=== PATIENT | female | born 1940 | race Caucasian/White ===

== ENCOUNTER 2018-10-04 13:18 | Inpatient (IN) | payer MEDICARE, OTHER ==
[2018-10-04] MEDS ORDERED: GLUCAGON 1 MG INJ IM (14:30)
[2018-10-04] MEDS ORDERED: DEXTROSE 50% 50 ML SYRINGE IV ×2 (14:30)
[2018-10-04] MEDS ORDERED: GLUCOSE GEL 15 GRAM TUBE BUCCAL (14:30)
[2018-10-04] MEDS ORDERED: GLUCOSE GEL 15 GRAM TUBE PO ×2 (14:30)
[2018-10-04] MEDS: DEXTROSE 5%-0.45% NACL 1,000 ML IV (14:38)
[2018-10-04] MEDS: FAMOTIDINE 20 MG INJ IV (15:45)
[2018-10-04] MEDS: INSULIN ASPART [NOVOLOG] 3 ML PEN SC ×2 (16:59→21:41)
[2018-10-04] MEDS: ACETAMINOPHEN 1000MG/100ML IV 100 ML IVPB (22:35)
[2018-10-05] MEDS: INSULIN ASPART [NOVOLOG] 3 ML PEN SC ×6 (00:22→20:16)
[2018-10-05] MEDS: DEXTROSE 5%-0.45% NACL 1,000 ML IV ×2 (01:33→15:25)
[2018-10-05] MEDS: SOD CHLORIDE 0.9% 500 ML IV (03:56)
[2018-10-05 05:48] LABS: ABNORMAL IP MESSAGE 1; HEMATOCRIT 23.2 % (37.0-47.0); MEAN CORPUSCULAR HEMOGLOBIN 28.8 pg (29.0-33.0); MEAN CORPUSCULAR HGB CONC 29.7 g/dl (32.0-37.0); MEAN CORPUSCULAR VOLUME 96.7 fl (82.0-101.0); MEAN PLATELET VOLUME 12.9 fl (7.4-10.4); NUCLEATED RED BLOOD CELLS% 0.2 /100WBC (0.0-0.0); PLATELET COUNT 133 10^3/UL (140-415); RED CELL DISTRIBUTION WIDTH 14.7 % (11.5-14.5)
[2018-10-05 05:48] LABS: WHITE BLOOD COUNT 13.1 10^3/ul (4.8-10.8)
[2018-10-05 05:54] LABS: ADD MAN DIFF? YES; HEMOGLOBIN 6.9 g/dl (12.0-16.0); POSITIVE DIFF @See below
[2018-10-05 06:09] LABS: PARTIAL THROMBOPLASTIN TIME 52.4 Sec (23.0-35.0)
[2018-10-05] MEDS ORDERED: PHENYLephrine 20MG IN 250 ML 250 ML IV (06:30)
[2018-10-05 06:37] LABS: ANION GAP 14 (5-13); BLOOD UREA NITROGEN 111 mg/dl (7-20); CALCIUM 7.5 mg/dl (8.4-10.2); CARBON DIOXIDE 24 mmol/L (21-31); CHLORIDE 101 mmol/L (97-110); CREATININE 7.19 mg/dl (0.44-1.00); GLUCOSE 93 mg/dl (70-220); MAGNESIUM 3.5 mg/dl (1.7-2.5); PHOSPHORUS 6.9 mg/dl (2.5-4.9); POTASSIUM 4.3 mmol/L (3.5-5.1); SODIUM 139 mmol/L (135-144)
[2018-10-05 06:54] LABS: ANISOCYTOSIS 2+ (0-0); BAND NEUTROPHILS #M 0.6 10^3/ul (0.0-0.6); BAND NEUTROPHILS % (M) 5 % (0-4); LYMPHOCYTES #M 0.5 10^3/ul (0.8-2.9); LYMPHOCYTES % (M) 4 % (15-51); MICROCYTOSIS 1+ (0-0); MONOCYTES % (M) 8 % (0-11); PLATELET ESTIMATE DECREASED; POLYCHROMASIA 1+ (0-0); SEGMENTED NEUTROPHILS (M) % 83 % (39-77); SMUDGE%M 9 % (0-0)
[2018-10-05] MEDS: LIDOCAINE 1% (MPF) 5 ML VIAL SC (09:00)
[2018-10-05] MEDS: FAMOTIDINE 20 MG INJ IV (09:59)
[2018-10-05] MEDS: INSULIN GLARGINE [LANTus] (100 UNITS/ML) SYG SC (10:00)
[2018-10-05] MEDS: BUDESONIDE (NEB) 0.5MG/2ML AMP HHN ×2 (10:16→20:17)
[2018-10-05 13:34] LABS: HEPATITIS B SURFACE ANTIBODY NEGATIVE (NEGATIVE)
[2018-10-05 14:23] LABS: IMMEDIATE SPIN CROSSMATCH 1 1
[2018-10-05 14:36] LABS: HEPATITIS B SURFACE ANTIGEN NEGATIVE (NEGATIVE)
[2018-10-05 17:12] LABS: OCCULT BLOOD STOOL POSITIVE (NEGATIVE)
[2018-10-05] MEDS: ALBUTEROL/IPRATROPIUM (NEB) 3 ML AMP HHN ×2 (17:43→20:17)
[2018-10-05 19:08] LABS: CREATINE KINASE 297 IU/L (23-200)
[2018-10-05 19:21] LABS: CK INDEX 0.7; CK-MB 2.17 ng/ml (0.0-2.4); TROPONIN-I 0.104 ng/ml (0.000-0.120)
[2018-10-06] MEDS: INSULIN ASPART [NOVOLOG] 3 ML PEN SC ×6 (01:38→21:00)
[2018-10-06 01:54] LABS: CREATINE KINASE 216 IU/L (23-200)
[2018-10-06 02:05] LABS: CK INDEX 0.7
[2018-10-06 02:08] LABS: TROPONIN-I 0.121 ng/ml (0.000-0.120)
[2018-10-06] MEDS: DEXTROSE 5%-0.45% NACL 1,000 ML IV (05:10)
[2018-10-06 05:12] LABS: ADD MAN DIFF? NO
[2018-10-06 05:24] LABS: WHITE BLOOD COUNT 10.1 10^3/ul (4.8-10.8)
[2018-10-06 05:24] LABS: BASOPHILS % 0.1 % (0.0-2.0); EOSINOPHILS # 0.1 10^3/ul (0.0-0.5); EOSINOPHILS % 1.4 % (0.0-7.0); HEMATOCRIT 23.5 % (37.0-47.0); HEMOGLOBIN 7.5 g/dl (12.0-16.0); LYMPHOCYTES # 0.6 10^3/ul (0.8-2.9); MEAN CORPUSCULAR HEMOGLOBIN 29.9 pg (29.0-33.0); MEAN CORPUSCULAR HGB CONC 31.9 g/dl (32.0-37.0); MEAN CORPUSCULAR VOLUME 93.6 fl (82.0-101.0); MEAN PLATELET VOLUME 12.6 fl (7.4-10.4); MONOCYTE # 0.6 10^3/ul (0.3-0.9); MONOCYTES % 5.8 % (0.0-11.0); NEUTROPHIL # 8.7 10^3/ul (1.6-7.5); NEUTROPHILS % 86.1 % (39.0-77.0); NUCLEATED RED BLOOD CELLS% 0.2 /100WBC (0.0-0.0); PLATELET COUNT 117 10^3/UL (140-415); RED BLOOD COUNT 2.51 10^6/ul (4.20-5.40); RED CELL DISTRIBUTION WIDTH 15.2 % (11.5-14.5)
[2018-10-06 06:03] LABS: CK-MB 1.15 ng/ml (0.0-2.4); TROPONIN-I 0.115 ng/ml (0.000-0.120)
[2018-10-06 06:04] LABS: ANION GAP 14 (5-13); BLOOD UREA NITROGEN 118 mg/dl (7-20); CALCIUM 7.4 mg/dl (8.4-10.2); CARBON DIOXIDE 21 mmol/L (21-31); CHLORIDE 103 mmol/L (97-110); GLUCOSE 132 mg/dl (70-220); MAGNESIUM 3.6 mg/dl (1.7-2.5); POTASSIUM 4.4 mmol/L (3.5-5.1); SODIUM 138 mmol/L (135-144)
[2018-10-06 06:06] LABS: CK INDEX 0.6; CREATINE KINASE 184 IU/L (23-200)
[2018-10-06 08:22] LABS: IRON 18 ug/dl (35-150)
[2018-10-06 08:32] LABS: % IRON SATURATION 9 % SAT (22-52); TOTAL IRON BINDING CAPACITY 206 ug/dl (241-421)
[2018-10-06] MEDS: INSULIN GLARGINE [LANTus] (100 UNITS/ML) SYG SC (08:46)
[2018-10-06] MEDS: FAMOTIDINE 20 MG INJ IV (08:48)
[2018-10-06] MEDS: EPOETIN ALFA-EPBX (ESRD) 10,000 UNIT/ML VIAL SC (09:36)
[2018-10-06] MEDS: BUDESONIDE (NEB) 0.5MG/2ML AMP HHN ×2 (11:19→20:35)
[2018-10-06] MEDS: HEPARIN 1000 UNITS/ML 10 ML INJ CATHETER (22:49)
[2018-10-07] MEDS: INSULIN ASPART [NOVOLOG] 3 ML PEN SC ×6 (01:00→21:00)
[2018-10-07 05:19] LABS: ADD MAN DIFF? NO
[2018-10-07] MEDS: LEVOTHYROXINE 125 MCG TAB PO (05:21)
[2018-10-07 05:24] LABS: WHITE BLOOD COUNT 9.5 10^3/ul (4.8-10.8)
[2018-10-07 05:24] LABS: ABNORMAL IP MESSAGE 1; BASOPHILS % 0.1 % (0.0-2.0); EOSINOPHILS # 0.2 10^3/ul (0.0-0.5); EOSINOPHILS % 1.6 % (0.0-7.0); HEMATOCRIT 23.6 % (37.0-47.0); HEMOGLOBIN 7.3 g/dl (12.0-16.0); LYMPHOCYTES # 0.6 10^3/ul (0.8-2.9); MEAN CORPUSCULAR HEMOGLOBIN 29.2 pg (29.0-33.0); MEAN CORPUSCULAR HGB CONC 30.9 g/dl (32.0-37.0); MEAN CORPUSCULAR VOLUME 94.4 fl (82.0-101.0); MEAN PLATELET VOLUME 12.4 fl (7.4-10.4); MONOCYTE # 0.6 10^3/ul (0.3-0.9); MONOCYTES % 6.5 % (0.0-11.0); NEUTROPHIL # 8.1 10^3/ul (1.6-7.5); NEUTROPHILS % 85.2 % (39.0-77.0); PLATELET COUNT 123 10^3/UL (140-415); RED CELL DISTRIBUTION WIDTH 15.3 % (11.5-14.5)
[2018-10-07 05:56] LABS: ANION GAP 13 (5-13); BLOOD UREA NITROGEN 81 mg/dl (7-20); CALCIUM 7.9 mg/dl (8.4-10.2); CARBON DIOXIDE 24 mmol/L (21-31); CHLORIDE 103 mmol/L (97-110); GLUCOSE 86 mg/dl (70-220); MAGNESIUM 3.1 mg/dl (1.7-2.5); SODIUM 140 mmol/L (135-144)
[2018-10-07 05:57] LABS: PHOSPHORUS 6.2 mg/dl (2.5-4.9)
[2018-10-07 06:24] LABS: POSITIVE DIFF @See below
[2018-10-07 06:25] LABS: LYMPHOCYTES % 6.1 % (15.0-51.0)
[2018-10-07] MEDS: CALCITRIOL 1 MCG INJ IV (08:00)
[2018-10-07] MEDS: ONDANSETRON 4 MG INJ IV (08:49)
[2018-10-07] MEDS: INSULIN GLARGINE [LANTus] (100 UNITS/ML) SYG SC (09:12)
[2018-10-07] MEDS: BUDESONIDE (NEB) 0.5MG/2ML AMP HHN ×2 (09:13→20:32)
[2018-10-07] MEDS: FAMOTIDINE 20 MG INJ IV (09:35)
[2018-10-07] MEDS: SOD FERRIC GLUC COMPLX 125 MG in SOD CHLORIDE 0.9% 100 ML IVPB (13:00)
[2018-10-07] MEDS: ACETAMINOPHEN 650MG/20.3ML CUP PO (18:59)
[2018-10-07] MEDS: CALCITRIOL 0.25 MCG CAP PO (21:38)
[2018-10-08] MEDS: INSULIN ASPART [NOVOLOG] 3 ML PEN SC ×6 (01:00→21:00)
[2018-10-08] MEDS: ONDANSETRON 4 MG INJ IV (01:10)
[2018-10-08] MEDS: ACETAMINOPHEN 1000MG/100ML IV 100 ML IVPB (01:48)
[2018-10-08 02:12] LABS: ANION GAP 11 (5-13); BLOOD UREA NITROGEN 53 mg/dl (7-20); CARBON DIOXIDE 27 mmol/L (21-31); CHLORIDE 100 mmol/L (97-110); CREATININE 4.98 mg/dl (0.44-1.00); GLUCOSE 129 mg/dl (70-220); MAGNESIUM 2.7 mg/dl (1.7-2.5); PHOSPHORUS 4.7 mg/dl (2.5-4.9); POTASSIUM 3.9 mmol/L (3.5-5.1); SODIUM 138 mmol/L (135-144)
[2018-10-08 05:18] LABS: ADD MAN DIFF? NO
[2018-10-08 05:23] LABS: WHITE BLOOD COUNT 8.3 10^3/ul (4.8-10.8)
[2018-10-08 05:23] LABS: ABNORMAL IP MESSAGE 1; BASOPHILS % 0.1 % (0.0-2.0); EOSINOPHILS # 0.1 10^3/ul (0.0-0.5); EOSINOPHILS % 1.3 % (0.0-7.0); HEMATOCRIT 25.8 % (37.0-47.0); HEMOGLOBIN 8.1 g/dl (12.0-16.0); LYMPHOCYTES # 0.5 10^3/ul (0.8-2.9); LYMPHOCYTES % 6.3 % (15.0-51.0); MEAN CORPUSCULAR HEMOGLOBIN 29.8 pg (29.0-33.0); MEAN CORPUSCULAR HGB CONC 31.4 g/dl (32.0-37.0); MEAN CORPUSCULAR VOLUME 94.9 fl (82.0-101.0); MEAN PLATELET VOLUME 12.1 fl (7.4-10.4); MONOCYTE # 0.7 10^3/ul (0.3-0.9); MONOCYTES % 8.7 % (0.0-11.0); NEUTROPHIL # 6.9 10^3/ul (1.6-7.5); NEUTROPHILS % 82.8 % (39.0-77.0); PLATELET COUNT 126 10^3/UL (140-415); RED BLOOD COUNT 2.72 10^6/ul (4.20-5.40); RED CELL DISTRIBUTION WIDTH 15.4 % (11.5-14.5)
[2018-10-08] MEDS: LEVOTHYROXINE 125 MCG TAB PO ×2 (05:25→05:27)
[2018-10-08] MEDS: HALOPERIDOL 5 MG INJ IV ×4 (05:35→20:52)
[2018-10-08 05:51] LABS: ANION GAP 12 (5-13); BLOOD UREA NITROGEN 54 mg/dl (7-20); CALCIUM 8.3 mg/dl (8.4-10.2); CARBON DIOXIDE 26 mmol/L (21-31); CHLORIDE 104 mmol/L (97-110); CREATININE 5.29 mg/dl (0.44-1.00); GLUCOSE 111 mg/dl (70-220); MAGNESIUM 2.7 mg/dl (1.7-2.5); PHOSPHORUS 4.9 mg/dl (2.5-4.9); POTASSIUM 3.9 mmol/L (3.5-5.1); SODIUM 142 mmol/L (135-144)
[2018-10-08 06:00] LABS: POSITIVE DIFF @See below
[2018-10-08 06:15] LABS: CARCINOEMBRYONIC ANTIGEN 6.6 ng/ml (0.0-5.0)
[2018-10-08] MEDS: BUDESONIDE (NEB) 0.5MG/2ML AMP HHN ×2 (07:54→19:39)
[2018-10-08] MEDS ORDERED: ACETAMINOPHEN 1000MG/100ML IV 100 ML IVPB (08:00)
[2018-10-08] MEDS: FAMOTIDINE 20 MG INJ IV (09:13)
[2018-10-08] MEDS: INSULIN GLARGINE [LANTus] (100 UNITS/ML) SYG SC (12:14)
[2018-10-08] MEDS: SOD FERRIC GLUC COMPLX 125 MG in SOD CHLORIDE 0.9% 100 ML IVPB (12:38)
[2018-10-08 15:10] LABS: AMMONIA 10 umol/l (9-30)
[2018-10-08] MEDS: hydrALAzine 20 MG INJ IV (17:00)
[2018-10-08] MEDS: METOPROLOL 5 MG INJ IV (17:20)
[2018-10-08] MEDS: QUETIAPINE 25 MG TAB PO (21:50)
[2018-10-08] MEDS: METOPROLOL 25 MG TAB PO (22:23)
[2018-10-09] MEDS: INSULIN ASPART [NOVOLOG] 3 ML PEN SC ×6 (01:00→21:00)
[2018-10-09] MEDS: HALOPERIDOL 5 MG INJ IV ×3 (03:47→20:26)
[2018-10-09] MEDS: PANTOPRAZOLE (EC) 40 MG TAB PO (07:00)
[2018-10-09] MEDS: LEVOTHYROXINE 125 MCG TAB PO (07:01)
[2018-10-09] MEDS: INSULIN GLARGINE [LANTus] (100 UNITS/ML) SYG SC (08:21)
[2018-10-09 08:28] LABS: ADD MAN DIFF? NO
[2018-10-09 08:32] LABS: WHITE BLOOD COUNT 7.5 10^3/ul (4.8-10.8)
[2018-10-09 08:32] LABS: ABNORMAL IP MESSAGE 1; BASOPHILS % 0.3 % (0.0-2.0); EOSINOPHILS # 0.1 10^3/ul (0.0-0.5); EOSINOPHILS % 1.3 % (0.0-7.0); HEMATOCRIT 28.9 % (37.0-47.0); HEMOGLOBIN 8.9 g/dl (12.0-16.0); LYMPHOCYTES # 0.5 10^3/ul (0.8-2.9); LYMPHOCYTES % 6.9 % (15.0-51.0); MEAN CORPUSCULAR HEMOGLOBIN 29.7 pg (29.0-33.0); MEAN CORPUSCULAR HGB CONC 30.8 g/dl (32.0-37.0); MEAN CORPUSCULAR VOLUME 96.3 fl (82.0-101.0); MONOCYTE # 0.9 10^3/ul (0.3-0.9); MONOCYTES % 11.9 % (0.0-11.0); NEUTROPHIL # 5.9 10^3/ul (1.6-7.5); NEUTROPHILS % 77.7 % (39.0-77.0); PLATELET COUNT 125 10^3/UL (140-415); RED CELL DISTRIBUTION WIDTH 15.5 % (11.5-14.5)
[2018-10-09 08:36] LABS: POSITIVE DIFF @See below
[2018-10-09 09:00] LABS: ANION GAP 13 (5-13); BLOOD UREA NITROGEN 42 mg/dl (7-20); CALCIUM 8.5 mg/dl (8.4-10.2); CARBON DIOXIDE 28 mmol/L (21-31); CHLORIDE 101 mmol/L (97-110); CREATININE 4.94 mg/dl (0.44-1.00); GLUCOSE 80 mg/dl (70-220); MAGNESIUM 2.6 mg/dl (1.7-2.5); PHOSPHORUS 5.4 mg/dl (2.5-4.9); SODIUM 142 mmol/L (135-144)
[2018-10-09] MEDS: BUDESONIDE (NEB) 0.5MG/2ML AMP HHN ×2 (10:41→20:07)
[2018-10-09] MEDS: METOPROLOL 25 MG TAB PO ×2 (12:23→20:25)
[2018-10-09] MEDS: DEXTROSE 5%-0.45% NACL 1,000 ML IV (12:32)
[2018-10-09] MEDS: SOD FERRIC GLUC COMPLX 125 MG in SOD CHLORIDE 0.9% 100 ML IVPB (12:40)
[2018-10-09] MEDS: QUETIAPINE 25 MG TAB PO (20:24)
[2018-10-10] MEDS: INSULIN ASPART [NOVOLOG] 3 ML PEN SC ×6 (01:00→20:42)
[2018-10-10] MEDS: HALOPERIDOL 5 MG INJ IV ×2 (03:12→21:52)
[2018-10-10] MEDS: PANTOPRAZOLE (EC) 40 MG TAB PO (06:08)
[2018-10-10] MEDS: LEVOTHYROXINE 125 MCG TAB PO (06:08)
[2018-10-10 07:18] LABS: ADD UMIC YES; UR ASCORBIC ACID NEGATIVE (NEGATIVE); UR BACTERIA MODERATE /HPF (NONE SEEN); UR BILIRUBIN (Dip) NEGATIVE (NEGATIVE); UR BLOOD (Dip) 2+ mg/dL (NEGATIVE); UR CLARITY TURBID (CLEAR); UR COLOR AMBER (YELLOW); UR GLUCOSE (Dip) 1+ mg/dL (NEGATIVE); UR KETONES (Dip) TRACE mg/dL (NEGATIVE); UR LEUKOCYTE ESTERASE (Dip) 1+ Leu/ul (NEGATIVE); UR MUCUS FEW /HPF (NONE SEEN); UR NITRITE (Dip) NEGATIVE (NEGATIVE); UR NONSQUAMOUS EPITHELIAL CELL 3 /HPF (NONE SEEN); UR RBC > 182 /HPF (0-5); UR SPECIFIC GRAVITY (Dip) 1.025 (1.003-1.030); UR SQUAMOUS EPITHELIAL CELL FEW /HPF (FEW); UR TOTAL PROTEIN (Dip) 3+ mg/dl (NEGATIVE); UR UROBILINOGEN (Dip) NEGATIVE (NEGATIVE); UR WBC > 182 /HPF (0-5)
[2018-10-10 07:38] LABS: SODIUM,URINE RANDOM 122 mmol/L (30-90)
[2018-10-10] MEDS: BUDESONIDE (NEB) 0.5MG/2ML AMP HHN ×2 (08:32→20:18)
[2018-10-10] MEDS: hydrALAzine 20 MG INJ IV ×2 (09:25→21:24)
[2018-10-10] MEDS: METOPROLOL 25 MG TAB PO ×2 (09:26→20:42)
[2018-10-10] MEDS: INSULIN GLARGINE [LANTus] (100 UNITS/ML) SYG SC (09:49)
[2018-10-10] MEDS: SOD FERRIC GLUC COMPLX 125 MG in SOD CHLORIDE 0.9% 100 ML IVPB (13:30)
[2018-10-10] MEDS: DEXTROSE 5%-0.45% NACL 1,000 ML IV (13:31)
[2018-10-10 15:56] LABS: ABNORMAL IP MESSAGE 1; HEMATOCRIT 31.2 % (37.0-47.0); HEMOGLOBIN 9.5 g/dl (12.0-16.0); MEAN CORPUSCULAR HEMOGLOBIN 29.3 pg (29.0-33.0); MEAN CORPUSCULAR HGB CONC 30.4 g/dl (32.0-37.0); MEAN CORPUSCULAR VOLUME 96.3 fl (82.0-101.0); MEAN PLATELET VOLUME 11.7 fl (7.4-10.4); PLATELET COUNT 124 10^3/UL (140-415); RED BLOOD COUNT 3.24 10^6/ul (4.20-5.40); RED CELL DISTRIBUTION WIDTH 15.7 % (11.5-14.5)
[2018-10-10 15:56] LABS: WHITE BLOOD COUNT 9.9 10^3/ul (4.8-10.8)
[2018-10-10 16:15] LABS: ANION GAP 19 (5-13); BLOOD UREA NITROGEN 54 mg/dl (7-20); CALCIUM 8.7 mg/dl (8.4-10.2); CARBON DIOXIDE 23 mmol/L (21-31); CHLORIDE 100 mmol/L (97-110); CREATININE 6.71 mg/dl (0.44-1.00); GLUCOSE 165 mg/dl (70-220); MAGNESIUM 2.7 mg/dl (1.7-2.5); PHOSPHORUS 7.9 mg/dl (2.5-4.9); POTASSIUM 4.4 mmol/L (3.5-5.1); SODIUM 142 mmol/L (135-144)
[2018-10-10 16:35] LABS: POSITIVE DIFF @See below
[2018-10-10 16:36] LABS: ADD MAN DIFF? YES
[2018-10-10 17:28] LABS: ANISOCYTOSIS 1+ (0-0); BAND NEUTROPHILS #M 0.4 10^3/ul (0.0-0.6); BAND NEUTROPHILS % (M) 5 % (0-4); LYMPHOCYTES #M 0.1 10^3/ul (0.8-2.9); LYMPHOCYTES % (M) 2 % (15-51); METAMYELOCYTES #M 0.3 10^3/ul (0.0-0.0); METAMYELOCYTES %M 4 % (0-0); MICROCYTOSIS 1+ (0-0); MONOCYTE #M 0.7 10^3/ul (0.3-0.9); MONOCYTES % (M) 8 % (0-11); PLATELET ESTIMATE DECREASED; POIKILOCYTOSIS 1+ (0-0); POLYCHROMASIA 3+ (0-0); SEG NEUT #M 8.1 10^3/ul (1.6-7.5); SEGMENTED NEUTROPHILS (M) % 81 % (39-77)
[2018-10-10] MEDS: QUETIAPINE 25 MG TAB PO (20:42)
[2018-10-11] MEDS: INSULIN ASPART [NOVOLOG] 3 ML PEN SC ×6 (00:54→20:51)
[2018-10-11] MEDS: hydrALAzine 20 MG INJ IV ×3 (05:11→22:20)
[2018-10-11] MEDS: LEVOTHYROXINE 125 MCG TAB PO (05:40)
[2018-10-11] MEDS: PANTOPRAZOLE (EC) 40 MG TAB PO (05:40)
[2018-10-11 08:13] LABS: ADD MAN DIFF? NO
[2018-10-11 08:28] LABS: ABNORMAL IP MESSAGE 1; BASOPHILS % 0.2 % (0.0-2.0); EOSINOPHILS # 0.1 10^3/ul (0.0-0.5); EOSINOPHILS % 1.2 % (0.0-7.0); HEMATOCRIT 28.6 % (37.0-47.0); HEMOGLOBIN 8.8 g/dl (12.0-16.0); LYMPHOCYTES # 0.5 10^3/ul (0.8-2.9); MEAN CORPUSCULAR HEMOGLOBIN 29.1 pg (29.0-33.0); MEAN CORPUSCULAR HGB CONC 30.8 g/dl (32.0-37.0); MEAN CORPUSCULAR VOLUME 94.7 fl (82.0-101.0); MEAN PLATELET VOLUME 11.7 fl (7.4-10.4); MONOCYTES % 11.9 % (0.0-11.0); NEUTROPHIL # 6.5 10^3/ul (1.6-7.5); NEUTROPHILS % 76.8 % (39.0-77.0); PLATELET COUNT 121 10^3/UL (140-415); RED BLOOD COUNT 3.02 10^6/ul (4.20-5.40)
[2018-10-11 08:28] LABS: WHITE BLOOD COUNT 8.4 10^3/ul (4.8-10.8)
[2018-10-11 08:42] LABS: POSITIVE DIFF @See below
[2018-10-11] MEDS: BUDESONIDE (NEB) 0.5MG/2ML AMP HHN ×2 (08:44→20:28)
[2018-10-11 08:46] LABS: ANION GAP 16 (5-13); BLOOD UREA NITROGEN 38 mg/dl (7-20); CALCIUM 8.7 mg/dl (8.4-10.2); CARBON DIOXIDE 22 mmol/L (21-31); CHLORIDE 103 mmol/L (97-110); CREATININE 5.38 mg/dl (0.44-1.00); GLUCOSE 149 mg/dl (70-220); MAGNESIUM 2.5 mg/dl (1.7-2.5); PHOSPHORUS 6.1 mg/dl (2.5-4.9); POTASSIUM 4.2 mmol/L (3.5-5.1); SODIUM 141 mmol/L (135-144)
[2018-10-11] MEDS: METOPROLOL 25 MG TAB PO ×2 (09:23→20:53)
[2018-10-11] MEDS: ACETAMINOPHEN 650 MG SUPP PR (09:25)
[2018-10-11] MEDS: INSULIN GLARGINE [LANTus] (100 UNITS/ML) SYG SC (09:28)
[2018-10-11 10:43] LABS: ANISOCYTOSIS 1+ (0-0); BAND NEUTROPHILS #M 0.4 10^3/ul (0.0-0.6); BAND NEUTROPHILS % (M) 5 % (0-4); EOSINOPHILS % (M) 3 % (0-7); GIANT THROMBO% (M) 4 % (0-0); LYMPHOCYTES #M 0.5 10^3/ul (0.8-2.9); LYMPHOCYTES % (M) 7 % (15-51); METAMYELOCYTES #M 0.1 10^3/ul (0.0-0.0); METAMYELOCYTES %M 2 % (0-0); MICROCYTOSIS 1+ (0-0); MONOCYTE #M 0.7 10^3/ul (0.3-0.9); MONOCYTES % (M) 9 % (0-11); MYELOCYTES % (M) 1 % (0-0); OVALOCYTES 1+ (0-0); PLATELET ESTIMATE NORMAL; POLYCHROMASIA 1+ (0-0); SEG NEUT #M 6.2 10^3/ul (1.6-7.5); SEGMENTED NEUTROPHILS (M) % 73 % (39-77); SMUDGE%M 2 % (0-0)
[2018-10-11] MEDS: DEXTROSE 5%-0.45% NACL 1,000 ML IV ×2 (12:30→21:55)
[2018-10-11] MEDS: SOD FERRIC GLUC COMPLX 125 MG in SOD CHLORIDE 0.9% 100 ML IVPB (12:48)
[2018-10-11] MEDS: HALOPERIDOL 5 MG INJ IV (13:01)
[2018-10-11] MEDS: QUETIAPINE 25 MG TAB PO (20:53)
[2018-10-12] MEDS: ENALAPRILAT 1.25 MG INJ IV ×2 (00:34→02:30)
[2018-10-12] MEDS: INSULIN ASPART [NOVOLOG] 3 ML PEN SC ×6 (00:44→21:00)
[2018-10-12] MEDS: PANTOPRAZOLE (EC) 40 MG TAB PO (05:20)
[2018-10-12] MEDS: LEVOTHYROXINE 125 MCG TAB PO (05:20)
[2018-10-12] MEDS: hydrALAzine 20 MG INJ IV (05:57)
[2018-10-12] MEDS: BUDESONIDE (NEB) 0.5MG/2ML AMP HHN ×2 (08:01→20:12)
[2018-10-12] MEDS: METOPROLOL 25 MG TAB PO ×2 (09:00→21:00)
[2018-10-12] MEDS: INSULIN GLARGINE [LANTus] (100 UNITS/ML) SYG SC (09:27)
[2018-10-12] MEDS: ALBUMIN HUMAN 25% 100 ML IV (10:51)
[2018-10-12] MEDS: ALTEPLASE (CATHFLO) 2 MG INJ CATHETER (12:26)
[2018-10-12] MEDS: DEXTROSE 5%-0.45% NACL 1,000 ML IV (12:30)
[2018-10-12] MEDS: CLONIDINE 0.2 MG/24 HR PATCH TRANSDERM (14:25)
[2018-10-12 16:31] LABS: CREATININE, RANDOM URINE 48 mg/dL (20-275); MICROALBUMIN >600.0 mg/dL
[2018-10-12] MEDS: EPOETIN ALFA-EPBX (ESRD) 10,000 UNIT/ML VIAL SC (17:28)
[2018-10-12] MEDS: QUETIAPINE 25 MG TAB PO (21:00)
[2018-10-13] MEDS: INSULIN ASPART [NOVOLOG] 3 ML PEN SC ×6 (00:50→21:00)
[2018-10-13] MEDS: DEXTROSE 5%-0.45% NACL 1,000 ML IV (05:42)
[2018-10-13] MEDS: PANTOPRAZOLE (EC) 40 MG TAB PO (06:36)
[2018-10-13] MEDS: LEVOTHYROXINE 125 MCG TAB PO (06:36)
[2018-10-13] MEDS: BUDESONIDE (NEB) 0.5MG/2ML AMP HHN ×2 (08:38→20:20)
[2018-10-13] MEDS: INSULIN GLARGINE [LANTus] (100 UNITS/ML) SYG SC (09:28)
[2018-10-13] MEDS: METOPROLOL 25 MG TAB PO ×2 (09:35→21:37)
[2018-10-13] MEDS: METOPROLOL 5 MG INJ IV (09:35)
[2018-10-13 10:51] LABS: ADD MAN DIFF? NO
[2018-10-13 10:53] LABS: WHITE BLOOD COUNT 8.5 10^3/ul (4.8-10.8)
[2018-10-13 10:53] LABS: ABNORMAL IP MESSAGE 1; BASOPHILS % 0.4 % (0.0-2.0); EOSINOPHILS # 0.1 10^3/ul (0.0-0.5); EOSINOPHILS % 0.6 % (0.0-7.0); HEMOGLOBIN 8.7 g/dl (12.0-16.0); LYMPHOCYTES # 0.6 10^3/ul (0.8-2.9); LYMPHOCYTES % 6.9 % (15.0-51.0); MEAN CORPUSCULAR HEMOGLOBIN 29.5 pg (29.0-33.0); MEAN CORPUSCULAR HGB CONC 31.1 g/dl (32.0-37.0); MEAN CORPUSCULAR VOLUME 94.9 fl (82.0-101.0); MEAN PLATELET VOLUME 10.8 fl (7.4-10.4); MONOCYTE # 0.4 10^3/ul (0.3-0.9); MONOCYTES % 5.1 % (0.0-11.0); NEUTROPHIL # 7.2 10^3/ul (1.6-7.5); NEUTROPHILS % 84.9 % (39.0-77.0); PLATELET COUNT 114 10^3/UL (140-415); RED BLOOD COUNT 2.95 10^6/ul (4.20-5.40); RED CELL DISTRIBUTION WIDTH 16.2 % (11.5-14.5)
[2018-10-13 10:58] LABS: POSITIVE DIFF @See below
[2018-10-13 11:30] LABS: ANION GAP 11 (5-13); BLOOD UREA NITROGEN 19 mg/dl (7-20); CALCIUM 8.7 mg/dl (8.4-10.2); CARBON DIOXIDE 28 mmol/L (21-31); CHLORIDE 102 mmol/L (97-110); GLUCOSE 135 mg/dl (70-220); POTASSIUM 3.6 mmol/L (3.5-5.1); SODIUM 141 mmol/L (135-144)
[2018-10-13 13:23] LABS: ADD UMIC YES; UR ASCORBIC ACID NEGATIVE (NEGATIVE); UR BACTERIA MANY /HPF (NONE SEEN); UR BILIRUBIN (Dip) NEGATIVE (NEGATIVE); UR BLOOD (Dip) 2+ mg/dL (NEGATIVE); UR CLARITY TURBID (CLEAR); UR COLOR AMBER (YELLOW); UR GLUCOSE (Dip) NEGATIVE (NEGATIVE); UR KETONES (Dip) TRACE mg/dL (NEGATIVE); UR LEUKOCYTE ESTERASE (Dip) 1+ Leu/ul (NEGATIVE); UR MUCUS FEW /HPF (NONE SEEN); UR NITRITE (Dip) NEGATIVE (NEGATIVE); UR NONSQUAMOUS EPITHELIAL CELL 3 /HPF (NONE SEEN); UR RBC > 182 /HPF (0-5); UR SPECIFIC GRAVITY (Dip) 1.022 (1.003-1.030); UR SQUAMOUS EPITHELIAL CELL FEW /HPF (FEW); UR TOTAL PROTEIN (Dip) 3+ mg/dl (NEGATIVE); UR UROBILINOGEN (Dip) NEGATIVE (NEGATIVE); UR WBC > 182 /HPF (0-5)
[2018-10-13] MEDS: hydrALAzine 20 MG INJ IV (13:26)
[2018-10-13] MEDS: QUETIAPINE 25 MG TAB PO (21:37)
[2018-10-14] MEDS: INSULIN ASPART [NOVOLOG] 3 ML PEN SC ×6 (01:54→20:57)
[2018-10-14] MEDS: PANTOPRAZOLE (EC) 40 MG TAB PO (06:00)
[2018-10-14] MEDS: LEVOTHYROXINE 125 MCG TAB PO (06:00)
[2018-10-14] MEDS: METOPROLOL 25 MG TAB PO ×3 (08:44→20:50)
[2018-10-14] MEDS: INSULIN GLARGINE [LANTus] (100 UNITS/ML) SYG SC (09:06)
[2018-10-14] MEDS: BUDESONIDE (NEB) 0.5MG/2ML AMP HHN ×2 (09:55→20:04)
[2018-10-14] MEDS: DEXTROSE 5%-0.45% NACL 1,000 ML IV (12:02)
[2018-10-14] MEDS: EPOETIN ALFA-EPBX (ESRD) 10,000 UNIT/ML VIAL SC (18:00)
[2018-10-14] MEDS ORDERED: DOCUSATE SODIUM 100 MG CAP PO (19:00)
[2018-10-14] MEDS: QUETIAPINE 25 MG TAB PO (20:49)
[2018-10-15] MEDS: INSULIN ASPART [NOVOLOG] 3 ML PEN SC ×6 (00:55→21:33)
[2018-10-15] MEDS: PANTOPRAZOLE (EC) 40 MG TAB PO (05:24)
[2018-10-15] MEDS: LEVOTHYROXINE 125 MCG TAB PO (05:24)
[2018-10-15] MEDS: INSULIN GLARGINE [LANTus] (100 UNITS/ML) SYG SC (08:00)
[2018-10-15 08:28] LABS: ADD MAN DIFF? NO
[2018-10-15 08:44] LABS: WHITE BLOOD COUNT 8.1 10^3/ul (4.8-10.8)
[2018-10-15 08:44] LABS: BASOPHILS % 0.5 % (0.0-2.0); EOSINOPHILS # 0.1 10^3/ul (0.0-0.5); EOSINOPHILS % 1.7 % (0.0-7.0); HEMATOCRIT 26.4 % (37.0-47.0); HEMOGLOBIN 8.2 g/dl (12.0-16.0); LYMPHOCYTES # 0.8 10^3/ul (0.8-2.9); LYMPHOCYTES % 9.6 % (15.0-51.0); MEAN CORPUSCULAR HEMOGLOBIN 29.9 pg (29.0-33.0); MEAN CORPUSCULAR HGB CONC 31.1 g/dl (32.0-37.0); MEAN CORPUSCULAR VOLUME 96.4 fl (82.0-101.0); MEAN PLATELET VOLUME 11.5 fl (7.4-10.4); MONOCYTE # 1.1 10^3/ul (0.3-0.9); MONOCYTES % 13.7 % (0.0-11.0); NEUTROPHIL # 5.9 10^3/ul (1.6-7.5); NEUTROPHILS % 73.8 % (39.0-77.0); PLATELET COUNT 114 10^3/UL (140-415); RED BLOOD COUNT 2.74 10^6/ul (4.20-5.40)
[2018-10-15] MEDS: METOPROLOL 25 MG TAB PO ×2 (09:00→21:27)
[2018-10-15 09:13] LABS: ANION GAP 8 (5-13); BLOOD UREA NITROGEN 32 mg/dl (7-20); CALCIUM 8.2 mg/dl (8.4-10.2); CARBON DIOXIDE 27 mmol/L (21-31); CHLORIDE 103 mmol/L (97-110); CREATININE 6.07 mg/dl (0.44-1.00); GLUCOSE 129 mg/dl (70-220); MAGNESIUM 2.2 mg/dl (1.7-2.5); PHOSPHORUS 5.2 mg/dl (2.5-4.9); POTASSIUM 3.9 mmol/L (3.5-5.1); SODIUM 138 mmol/L (135-144)
[2018-10-15] MEDS: BUDESONIDE (NEB) 0.5MG/2ML AMP HHN ×2 (09:24→20:29)
[2018-10-15] MEDS: DEXTROSE 5%-0.45% NACL 1,000 ML IV (12:30)
[2018-10-15] MEDS: QUETIAPINE 25 MG TAB PO (21:27)
[2018-10-16] MEDS: INSULIN ASPART [NOVOLOG] 3 ML PEN SC ×6 (01:37→21:00)
[2018-10-16] MEDS: LEVOTHYROXINE 125 MCG TAB PO (06:00)
[2018-10-16] MEDS: PANTOPRAZOLE (EC) 40 MG TAB PO (06:00)
[2018-10-16] MEDS: METOPROLOL 25 MG TAB PO (09:00)
[2018-10-16] MEDS: INSULIN GLARGINE [LANTus] (100 UNITS/ML) SYG SC (09:03)
[2018-10-16] MEDS: BUDESONIDE (NEB) 0.5MG/2ML AMP HHN ×2 (09:39→20:12)
[2018-10-16] MEDS: DEXTROSE 5%-0.45% NACL 1,000 ML IV ×2 (12:15→18:27)
[2018-10-16] MEDS: LORAZEPAM 2 MG INJ IV ×2 (12:39→23:23)
[2018-10-16] MEDS ORDERED: LIDOCAINE 1% (MDV) 20 ML INJ (15:29)
[2018-10-16] MEDS ORDERED: MIDAZOLAM 1 MG/ML 2 ML INJ (15:29)
[2018-10-16 17:56] LABS: ADD MAN DIFF? NO
[2018-10-16] MEDS: EPOETIN ALFA-EPBX (ESRD) 10,000 UNIT/ML VIAL SC (17:56)
[2018-10-16 17:59] LABS: WHITE BLOOD COUNT 7.7 10^3/ul (4.8-10.8)
[2018-10-16 17:59] LABS: BASOPHILS % 0.3 % (0.0-2.0); EOSINOPHILS # 0.1 10^3/ul (0.0-0.5); EOSINOPHILS % 0.9 % (0.0-7.0); HEMATOCRIT 27.2 % (37.0-47.0); HEMOGLOBIN 8.4 g/dl (12.0-16.0); LYMPHOCYTES # 0.7 10^3/ul (0.8-2.9); LYMPHOCYTES % 9.3 % (15.0-51.0); MEAN CORPUSCULAR HEMOGLOBIN 29.4 pg (29.0-33.0); MEAN CORPUSCULAR HGB CONC 30.9 g/dl (32.0-37.0); MEAN CORPUSCULAR VOLUME 95.1 fl (82.0-101.0); MONOCYTE # 0.8 10^3/ul (0.3-0.9); NEUTROPHIL # 6.1 10^3/ul (1.6-7.5); NEUTROPHILS % 78.5 % (39.0-77.0); PLATELET COUNT 103 10^3/UL (140-415); RED BLOOD COUNT 2.86 10^6/ul (4.20-5.40); RED CELL DISTRIBUTION WIDTH 16.2 % (11.5-14.5)
[2018-10-16 18:25] LABS: ANION GAP 11 (5-13); BLOOD UREA NITROGEN 22 mg/dl (7-20); CALCIUM 8.3 mg/dl (8.4-10.2); CARBON DIOXIDE 24 mmol/L (21-31); CHLORIDE 103 mmol/L (97-110); CREATININE 5.59 mg/dl (0.44-1.00); GLUCOSE 148 mg/dl (70-220); POTASSIUM 3.7 mmol/L (3.5-5.1); SODIUM 138 mmol/L (135-144)
[2018-10-16] MEDS: QUETIAPINE 25 MG TAB PO (21:49)
[2018-10-16] MEDS: METOPROLOL 50 MG TAB PO (21:50)
[2018-10-17] MEDS: INSULIN ASPART [NOVOLOG] 3 ML PEN SC ×6 (01:00→20:51)
[2018-10-17] MEDS: PANTOPRAZOLE (EC) 40 MG TAB PO (06:10)
[2018-10-17] MEDS: LEVOTHYROXINE 125 MCG TAB PO (06:10)
[2018-10-17] MEDS: BUDESONIDE (NEB) 0.5MG/2ML AMP HHN ×2 (08:12→20:55)
[2018-10-17] MEDS: METOPROLOL 50 MG TAB PO ×2 (08:54→20:42)
[2018-10-17] MEDS: INSULIN GLARGINE [LANTus] (100 UNITS/ML) SYG SC (09:06)
[2018-10-17] MEDS: QUETIAPINE 25 MG TAB PO (20:42)
[2018-10-17] MEDS: DEXTROSE 5%-0.45% NACL 1,000 ML IV (22:47)
[2018-10-18] MEDS: INSULIN ASPART [NOVOLOG] 3 ML PEN SC ×6 (00:39→20:41)
[2018-10-18] MEDS: LORAZEPAM 2 MG INJ IV ×2 (01:16→21:53)
[2018-10-18] MEDS: PANTOPRAZOLE (EC) 40 MG TAB PO (05:22)
[2018-10-18] MEDS: LEVOTHYROXINE 125 MCG TAB PO (06:00)
[2018-10-18] MEDS: METOPROLOL 50 MG TAB PO ×2 (08:45→20:32)
[2018-10-18] MEDS: INSULIN GLARGINE [LANTus] (100 UNITS/ML) SYG SC (08:55)
[2018-10-18] MEDS: BUDESONIDE (NEB) 0.5MG/2ML AMP HHN ×2 (09:43→20:25)
[2018-10-18] MEDS: DEXTROSE 5%-0.45% NACL 1,000 ML IV (12:30)
[2018-10-18] MEDS: QUETIAPINE 25 MG TAB PO (20:31)
[2018-10-19] MEDS: INSULIN ASPART [NOVOLOG] 3 ML PEN SC ×6 (00:41→22:44)
[2018-10-19] MEDS: DEXTROSE 5%-0.45% NACL 1,000 ML IV (01:03)
[2018-10-19] MEDS: HALOPERIDOL 5 MG INJ IV (04:01)
[2018-10-19] MEDS: PANTOPRAZOLE (EC) 40 MG TAB PO (05:16)
[2018-10-19] MEDS: LEVOTHYROXINE 125 MCG TAB PO (05:25)
[2018-10-19] MEDS: INSULIN GLARGINE [LANTus] (100 UNITS/ML) SYG SC (08:15)
[2018-10-19] MEDS: METOPROLOL 50 MG TAB PO ×2 (08:55→20:48)
[2018-10-19] MEDS: DIGOXIN 500 MCG INJ IV (12:00)
[2018-10-19] MEDS: CLONIDINE 0.2 MG/24 HR PATCH TRANSDERM (13:14)
[2018-10-19] MEDS: BUDESONIDE (NEB) 0.5MG/2ML AMP HHN ×2 (13:37→22:09)
[2018-10-19] MEDS: EPOETIN ALFA-EPBX (ESRD) 10,000 UNIT/ML VIAL SC (17:35)
[2018-10-19] MEDS: hydrALAzine 20 MG INJ IV (20:51)
[2018-10-19] MEDS: QUETIAPINE 25 MG TAB PO (20:52)
[2018-10-20] MEDS: LORAZEPAM 2 MG INJ IV (01:00)
[2018-10-20] MEDS: INSULIN ASPART [NOVOLOG] 3 ML PEN SC ×5 (01:00→17:00)
[2018-10-20] MEDS: hydrALAzine 20 MG INJ IV (03:42)
[2018-10-20] MEDS: PANTOPRAZOLE (EC) 40 MG TAB PO (06:49)
[2018-10-20] MEDS: LEVOTHYROXINE 125 MCG TAB PO (06:49)
[2018-10-20] MEDS: BUDESONIDE (NEB) 0.5MG/2ML AMP HHN ×2 (08:57→23:06)
[2018-10-20] MEDS: METOPROLOL 50 MG TAB PO ×2 (09:03→22:31)
[2018-10-20] MEDS: POLYETHYLENE GLYCOL 17 GM PACKET PO (09:03)
[2018-10-20] MEDS: INSULIN GLARGINE [LANTus] (100 UNITS/ML) SYG SC (09:08)
[2018-10-20 13:06] LABS: ADD MAN DIFF? NO
[2018-10-20 13:10] LABS: ABNORMAL IP MESSAGE 1; BASOPHILS % 0.4 % (0.0-2.0); EOSINOPHILS # 0.1 10^3/ul (0.0-0.5); HEMATOCRIT 30.3 % (37.0-47.0); HEMOGLOBIN 9.4 g/dl (12.0-16.0); LYMPHOCYTES # 0.5 10^3/ul (0.8-2.9); LYMPHOCYTES % 9.4 % (15.0-51.0); MEAN CORPUSCULAR HEMOGLOBIN 29.6 pg (29.0-33.0); MEAN CORPUSCULAR VOLUME 95.3 fl (82.0-101.0); MEAN PLATELET VOLUME 11.4 fl (7.4-10.4); MONOCYTE # 0.9 10^3/ul (0.3-0.9); NEUTROPHIL # 3.6 10^3/ul (1.6-7.5); PLATELET COUNT 116 10^3/UL (140-415); RED BLOOD COUNT 3.18 10^6/ul (4.20-5.40); RED CELL DISTRIBUTION WIDTH 17.2 % (11.5-14.5)
[2018-10-20 13:16] LABS: POSITIVE DIFF @See below
[2018-10-20 13:27] LABS: ALBUMIN/GLOBULIN RATIO 1.42; ALKALINE PHOSPHATASE 89 IU/L (42-121); ANION GAP 13 (5-13); ASPARTATE AMINO TRANSFERASE 41 IU/L (15-46); BILIRUBIN,INDIRECT 0.5 mg/dl (0-1.1); BILIRUBIN,TOTAL 0.5 mg/dl (0.2-1.3); BLOOD UREA NITROGEN 14 mg/dl (7-20); CALCIUM 8.8 mg/dl (8.4-10.2); CARBON DIOXIDE 25 mmol/L (21-31); CHLORIDE 99 mmol/L (97-110); GLUCOSE 216 mg/dl (70-220); POTASSIUM 3.8 mmol/L (3.5-5.1); SODIUM 137 mmol/L (135-144); TOTAL PROTEIN 6.8 g/dl (6.1-8.1)
[2018-10-20 13:28] LABS: ALANINE AMINOTRANSFERASE < 6 IU/L (13-69)
[2018-10-20] MEDS: DEXTROSE 5%-0.45% NACL 1,000 ML IV (18:45)
[2018-10-20] MEDS: QUETIAPINE 25 MG TAB PO (22:28)
[2018-10-21] MEDS: INSULIN ASPART [NOVOLOG] 3 ML PEN SC ×7 (00:18→21:00)
[2018-10-21] MEDS: PANTOPRAZOLE (EC) 40 MG TAB PO (05:28)
[2018-10-21] MEDS: LEVOTHYROXINE 125 MCG TAB PO (05:28)
[2018-10-21 07:37] LABS: ADD MAN DIFF? NO
[2018-10-21 07:40] LABS: BASOPHILS % 0.4 % (0.0-2.0); EOSINOPHILS # 0.1 10^3/ul (0.0-0.5); EOSINOPHILS % 1.4 % (0.0-7.0); HEMATOCRIT 28.2 % (37.0-47.0); HEMOGLOBIN 8.8 g/dl (12.0-16.0); LYMPHOCYTES # 0.6 10^3/ul (0.8-2.9); LYMPHOCYTES % 12.4 % (15.0-51.0); MEAN CORPUSCULAR HEMOGLOBIN 29.8 pg (29.0-33.0); MEAN CORPUSCULAR HGB CONC 31.2 g/dl (32.0-37.0); MEAN CORPUSCULAR VOLUME 95.6 fl (82.0-101.0); MEAN PLATELET VOLUME 11.9 fl (7.4-10.4); MONOCYTE # 0.8 10^3/ul (0.3-0.9); MONOCYTES % 16.2 % (0.0-11.0); NEUTROPHIL # 3.5 10^3/ul (1.6-7.5); NEUTROPHILS % 69.2 % (39.0-77.0); PLATELET COUNT 119 10^3/UL (140-415); RED BLOOD COUNT 2.95 10^6/ul (4.20-5.40); RED CELL DISTRIBUTION WIDTH 17.3 % (11.5-14.5)
[2018-10-21 07:40] LABS: WHITE BLOOD COUNT 5.1 10^3/ul (4.8-10.8)
[2018-10-21 07:43] LABS: POSITIVE DIFF @See below
[2018-10-21 08:03] LABS: ANION GAP 12 (5-13); BLOOD UREA NITROGEN 17 mg/dl (7-20); CALCIUM 8.7 mg/dl (8.4-10.2); CARBON DIOXIDE 25 mmol/L (21-31); CHLORIDE 100 mmol/L (97-110); CREATININE 5.24 mg/dl (0.44-1.00); GLUCOSE 181 mg/dl (70-220); POTASSIUM 4.3 mmol/L (3.5-5.1); SODIUM 137 mmol/L (135-144)
[2018-10-21] MEDS: BUDESONIDE (NEB) 0.5MG/2ML AMP HHN ×2 (08:35→20:26)
[2018-10-21] MEDS: POLYETHYLENE GLYCOL 17 GM PACKET PO (08:42)
[2018-10-21] MEDS: INSULIN GLARGINE [LANTus] (100 UNITS/ML) SYG SC (08:46)
[2018-10-21] MEDS: METOPROLOL 50 MG TAB PO ×2 (08:48→22:24)
[2018-10-21] MEDS: DEXTROSE 5%-0.45% NACL 1,000 ML IV (12:36)
[2018-10-21] MEDS: EPOETIN ALFA-EPBX (ESRD) 10,000 UNIT/ML VIAL SC (18:05)
[2018-10-21] MEDS: QUETIAPINE 25 MG TAB PO (22:23)
[2018-10-22] MEDS: INSULIN ASPART [NOVOLOG] 3 ML PEN SC ×6 (01:00→20:25)
[2018-10-22] MEDS: PANTOPRAZOLE (EC) 40 MG TAB PO (05:25)
[2018-10-22] MEDS: LEVOTHYROXINE 125 MCG TAB PO (05:25)
[2018-10-22] MEDS: BUDESONIDE (NEB) 0.5MG/2ML AMP HHN ×2 (08:05→20:43)
[2018-10-22] MEDS: POLYETHYLENE GLYCOL 17 GM PACKET PO (09:00)
[2018-10-22] MEDS: METOPROLOL 50 MG TAB PO ×2 (09:09→20:20)
[2018-10-22] MEDS: INSULIN GLARGINE [LANTus] (100 UNITS/ML) SYG SC (10:59)
[2018-10-22] MEDS: DEXTROSE 5%-0.45% NACL 1,000 ML IV (12:30)
[2018-10-22] MEDS: QUETIAPINE 25 MG TAB PO ×3 (15:30→20:21)
[2018-10-22] MEDS: DILTIAZEM 30 MG TAB PO (22:00)
[2018-10-23] MEDS: INSULIN ASPART [NOVOLOG] 3 ML PEN SC ×5 (01:27→16:29)
[2018-10-23] MEDS: DEXTROSE 5%-0.45% NACL 1,000 ML IV (02:34)
[2018-10-23] MEDS: LEVOTHYROXINE 125 MCG TAB PO (06:00)
[2018-10-23] MEDS: DILTIAZEM 30 MG TAB PO ×2 (06:00→13:06)
[2018-10-23] MEDS: PANTOPRAZOLE (EC) 40 MG TAB PO (06:00)
[2018-10-23] MEDS: INSULIN GLARGINE [LANTus] (100 UNITS/ML) SYG SC (07:48)
[2018-10-23] MEDS: QUETIAPINE 25 MG TAB PO ×2 (09:01→17:24)
[2018-10-23] MEDS: POLYETHYLENE GLYCOL 17 GM PACKET PO (09:01)
[2018-10-23] MEDS: METOPROLOL 50 MG TAB PO (09:02)
[2018-10-23] MEDS: MULTIVIT/CA CARB/B CMPLX/FA TAB PO (09:02)
[2018-10-23] MEDS: BUDESONIDE (NEB) 0.5MG/2ML AMP HHN (09:25)
[2018-10-23] MEDS: SEVELAMER CARBONATE 800 MG TABLET PO ×2 (11:50→17:24)
[2018-10-23] MEDS: EPOETIN ALFA-EPBX (ESRD) 10,000 UNIT/ML VIAL SC (16:31)
== END 2018-10-23 18:28 | DRG 291 ==
LOC: TEL 10-08 06:55 → ICU 13:18
PROVIDERS: Internal Medicine
PROC: 0JH63XZ Insertion of Tunneled Vascular Access Device into Chest Subcutaneous Tissue and Fascia, Percutaneous Approach (ICD-10-PCS; 2018-10-16 14:00)
PROC: 02H633Z Insertion of Infusion Device into Right Atrium, Percutaneous Approach (ICD-10-PCS; 2018-10-16 14:00)
PROC: 06HY33Z Insertion of Infusion Device into Lower Vein, Percutaneous Approach (ICD-10-PCS; principal; 2018-10-16 15:15)
PROC: 5A1D70Z Performance of Urinary Filtration, Intermittent, Less than 6 Hours Per Day (ICD-10-PCS; 2018-10-16 15:15)
PROC: 02HV33Z Insertion of Infusion Device into Superior Vena Cava, Percutaneous Approach (ICD-10-PCS; 2018-10-16 15:15)
PROC: 30233N1 Transfusion of Nonautologous Red Blood Cells into Peripheral Vein, Percutaneous Approach (ICD-10-PCS; 2018-10-16 15:15)
DX: I13.2 Hypertensive heart and chronic kidney disease with heart failure and with stage 5 chronic kidney disease, or end stage renal disease (principal); I50.33 Acute on chronic diastolic (congestive) heart failure; N17.0 Acute kidney failure with tubular necrosis; N18.6 End stage renal disease; G93.41 Metabolic encephalopathy; E87.2 Acidosis; N39.0 Urinary tract infection, site not specified; K92.2 Gastrointestinal hemorrhage, unspecified; I95.9 Hypotension, unspecified; D69.6 Thrombocytopenia, unspecified; D63.1 Anemia in chronic kidney disease; D72.829 Elevated white blood cell count, unspecified; D50.0 Iron deficiency anemia secondary to blood loss (chronic); E11.22 Type 2 diabetes mellitus with diabetic chronic kidney disease; E03.9 Hypothyroidism, unspecified; E78.5 Hyperlipidemia, unspecified; I48.2 Chronic atrial fibrillation; I25.10 Atherosclerotic heart disease of native coronary artery without angina pectoris; J45.909 Unspecified asthma, uncomplicated; K21.9 Gastro-esophageal reflux disease without esophagitis; R06.02 Shortness of breath; E66.9 Obesity, unspecified; Z68.34 Body mass index [BMI] 34.0-34.9, adult; Z85.038 Personal history of other malignant neoplasm of large intestine; Z90.49 Acquired absence of other specified parts of digestive tract; Z99.2 Dependence on renal dialysis; Z86.711 Personal history of pulmonary embolism; Z79.4 Long term (current) use of insulin; Z79.02 Long term (current) use of antithrombotics/antiplatelets; Z79.82 Long term (current) use of aspirin
CPT/HCPCS: 36430; 36569; 70450; 70551; 71045; 76937; 80048; 80053; 81001; 81003; 82043; 82140; 82270; 82378; 82550; 82553; 82607; 82728; 82962; 83540; 83735; 84100; 84155; 84300; 84443; 84484; 85025; 85730; 86706; 86850; 86900; 86901; 86920; 87081; 87340; 90935; 92526; 92610; 93005; 94640; 94664; 95819; 97110; 97116; 97162; 97167; 97530; 97535

== ENCOUNTER 2018-10-23 18:28 | Inpatient (IN) | payer MEDICARE, OTHER ==
[2018-10-23] MEDS ORDERED: PENDING SANTYL ORDER FOR WOUND CARE XX (19:00)
[2018-10-23] MEDS ORDERED: ENALAPRILAT 1.25 MG INJ IV (22:00)
[2018-10-23] MEDS: BUDESONIDE (NEB) 0.5MG/2ML AMP HHN (22:00)
[2018-10-23] MEDS ORDERED: ALBUMIN HUMAN 25% 100 ML IV (22:00)
[2018-10-23] MEDS ORDERED: ALBUTEROL/IPRATROPIUM (NEB) 3 ML AMP HHN (22:00)
[2018-10-23] MEDS ORDERED: ACETAMINOPHEN 650 MG SUPP PR (22:00)
[2018-10-23] MEDS ORDERED: DEXTROSE 50% 50 ML SYRINGE IV ×2 (22:30)
[2018-10-23] MEDS ORDERED: GLUCAGON 1 MG INJ IM (22:30)
[2018-10-23] MEDS ORDERED: GLUCOSE GEL 15 GRAM TUBE BUCCAL (22:30)
[2018-10-23] MEDS ORDERED: GLUCOSE GEL 15 GRAM TUBE PO ×2 (22:30)
[2018-10-23] MEDS ORDERED: hydrALAzine 20 MG INJ IV (22:30)
[2018-10-23] MEDS: QUETIAPINE 25 MG TAB PO (22:45)
[2018-10-23] MEDS: DILTIAZEM 30 MG TAB PO (22:46)
[2018-10-23] MEDS: METOPROLOL 25 MG TAB PO (22:46)
[2018-10-23] MEDS: INSULIN ASPART [NOVOLOG] 3 ML PEN SC (23:33)
[2018-10-23] MEDS: ACETAMINOPHEN 650MG/20.3ML CUP PO (23:58)
[2018-10-24] MEDS: LORAZEPAM 2 MG INJ IV (02:35)
[2018-10-24] MEDS: PANTOPRAZOLE (EC) 40 MG TAB PO (07:07)
[2018-10-24] MEDS: LEVOTHYROXINE 125 MCG TAB PO (07:07)
[2018-10-24] MEDS: DILTIAZEM 30 MG TAB PO ×3 (07:07→22:00)
[2018-10-24 07:11] LABS: ADD MAN DIFF? NO
[2018-10-24 07:16] LABS: BASOPHILS % 0.2 % (0.0-2.0); EOSINOPHILS # 0.1 10^3/ul (0.0-0.5); HEMOGLOBIN 8.5 g/dl (12.0-16.0); LYMPHOCYTES # 0.9 10^3/ul (0.8-2.9); LYMPHOCYTES % 19.5 % (15.0-51.0); MEAN CORPUSCULAR HEMOGLOBIN 29.2 pg (29.0-33.0); MEAN CORPUSCULAR HGB CONC 30.4 g/dl (32.0-37.0); MEAN CORPUSCULAR VOLUME 96.2 fl (82.0-101.0); MEAN PLATELET VOLUME 11.7 fl (7.4-10.4); MONOCYTE # 0.8 10^3/ul (0.3-0.9); MONOCYTES % 18.1 % (0.0-11.0); NEUTROPHIL # 2.6 10^3/ul (1.6-7.5); NEUTROPHILS % 59.7 % (39.0-77.0); PLATELET COUNT 128 10^3/UL (140-415); RED BLOOD COUNT 2.91 10^6/ul (4.20-5.40); RED CELL DISTRIBUTION WIDTH 17.1 % (11.5-14.5)
[2018-10-24 07:16] LABS: WHITE BLOOD COUNT 4.4 10^3/ul (4.8-10.8)
[2018-10-24 07:29] LABS: POSITIVE DIFF @See below
[2018-10-24 07:35] LABS: ALANINE AMINOTRANSFERASE 9 IU/L (13-69); ALBUMIN 3.6 g/dl (3.3-4.9); ALBUMIN/GLOBULIN RATIO 1.33; ALKALINE PHOSPHATASE 89 IU/L (42-121); ANION GAP 8 (5-13); ASPARTATE AMINO TRANSFERASE 34 IU/L (15-46); BILIRUBIN,INDIRECT 0.4 mg/dl (0-1.1); BILIRUBIN,TOTAL 0.4 mg/dl (0.2-1.3); BLOOD UREA NITROGEN 9 mg/dl (7-20); CALCIUM 8.8 mg/dl (8.4-10.2); CARBON DIOXIDE 31 mmol/L (21-31); CHLORIDE 101 mmol/L (97-110); CREATININE 3.43 mg/dl (0.44-1.00); GLUCOSE 178 mg/dl (70-220); POTASSIUM 4.2 mmol/L (3.5-5.1); SODIUM 140 mmol/L (135-144); TOTAL PROTEIN 6.3 g/dl (6.1-8.1)
[2018-10-24] MEDS: INSULIN ASPART [NOVOLOG] 3 ML PEN SC ×4 (07:35→20:21)
[2018-10-24] MEDS: QUETIAPINE 25 MG TAB PO ×3 (07:35→20:23)
[2018-10-24] MEDS: SEVELAMER CARBONATE 800 MG TABLET PO ×3 (07:35→17:54)
[2018-10-24] MEDS: INSULIN GLARGINE [LANTus] (100 UNITS/ML) SYG SC (08:00)
[2018-10-24] MEDS: MULTIVIT/CA CARB/B CMPLX/FA TAB PO (09:00)
[2018-10-24] MEDS: METOPROLOL 25 MG TAB PO ×2 (09:00→20:23)
[2018-10-24] MEDS: POLYETHYLENE GLYCOL 17 GM PACKET PO (09:00)
[2018-10-24] MEDS: BUDESONIDE (NEB) 0.5MG/2ML AMP HHN ×2 (09:57→19:27)
[2018-10-25] MEDS: ONDANSETRON 4 MG INJ IV (00:54)
[2018-10-25] MEDS: DILTIAZEM 30 MG TAB PO ×3 (06:00→21:43)
[2018-10-25] MEDS: LEVOTHYROXINE 125 MCG TAB PO (06:00)
[2018-10-25] MEDS: PANTOPRAZOLE (EC) 40 MG TAB PO (06:00)
[2018-10-25] MEDS: INSULIN ASPART [NOVOLOG] 3 ML PEN SC ×5 (07:35→20:34)
[2018-10-25] MEDS: QUETIAPINE 25 MG TAB PO ×3 (07:35→20:33)
[2018-10-25] MEDS: SEVELAMER CARBONATE 800 MG TABLET PO ×3 (07:35→17:35)
[2018-10-25] MEDS: INSULIN GLARGINE [LANTus] (100 UNITS/ML) SYG SC ×2 (08:00→08:22)
[2018-10-25] MEDS: METOPROLOL 25 MG TAB PO ×2 (09:00→20:33)
[2018-10-25] MEDS: MULTIVIT/CA CARB/B CMPLX/FA TAB PO (09:00)
[2018-10-25] MEDS: POLYETHYLENE GLYCOL 17 GM PACKET PO (09:00)
[2018-10-25] MEDS: BUDESONIDE (NEB) 0.5MG/2ML AMP HHN ×2 (09:00→20:02)
[2018-10-26] MEDS: DILTIAZEM 30 MG TAB PO ×3 (05:22→22:00)
[2018-10-26] MEDS: PANTOPRAZOLE (EC) 40 MG TAB PO (05:23)
[2018-10-26] MEDS: LEVOTHYROXINE 125 MCG TAB PO (05:23)
[2018-10-26] MEDS: SEVELAMER CARBONATE 800 MG TABLET PO ×3 (07:35→17:35)
[2018-10-26] MEDS: BUDESONIDE (NEB) 0.5MG/2ML AMP HHN ×2 (07:38→20:00)
[2018-10-26] MEDS: INSULIN GLARGINE [LANTus] (100 UNITS/ML) SYG SC (08:32)
[2018-10-26] MEDS: INSULIN ASPART [NOVOLOG] 3 ML PEN SC ×4 (08:33→20:38)
[2018-10-26] MEDS: QUETIAPINE 25 MG TAB PO ×5 (08:36→21:00)
[2018-10-26] MEDS: MULTIVIT/CA CARB/B CMPLX/FA TAB PO (09:00)
[2018-10-26] MEDS: POLYETHYLENE GLYCOL 17 GM PACKET PO (11:23)
[2018-10-26] MEDS: METOPROLOL 25 MG TAB PO ×3 (11:25→21:00)
[2018-10-26] MEDS: CLONIDINE 0.2 MG/24 HR PATCH TRANSDERM (13:00)
[2018-10-26 16:23] LABS: HEMOGLOBIN A1C 6.5 % (0-5.9)
[2018-10-26] MEDS: LORAZEPAM 0.5 MG TAB PO (17:45)
[2018-10-26] MEDS: EPOETIN ALFA-EPBX (ESRD) 10,000 UNIT/ML VIAL SC (20:30)
[2018-10-26] MEDS: DOCUSATE SODIUM 100 MG CAP PO (20:31)
[2018-10-26] MEDS: HALOPERIDOL 5 MG INJ IM (23:28)
[2018-10-27] MEDS: ACCUCHECK AT 2AM (Patients on SS coverage) XX (02:15)
[2018-10-27] MEDS: PANTOPRAZOLE (EC) 40 MG TAB PO ×2 (06:00→06:43)
[2018-10-27] MEDS: DILTIAZEM 30 MG TAB PO ×3 (06:00→14:00)
[2018-10-27] MEDS: LEVOTHYROXINE 125 MCG TAB PO ×2 (06:00→06:43)
[2018-10-27] MEDS: QUETIAPINE 25 MG TAB PO (07:35)
[2018-10-27] MEDS: INSULIN ASPART [NOVOLOG] 3 ML PEN SC ×2 (07:35→12:05)
[2018-10-27] MEDS: SEVELAMER CARBONATE 800 MG TABLET PO ×2 (07:35→12:00)
[2018-10-27] MEDS: INSULIN GLARGINE [LANTus] (100 UNITS/ML) SYG SC (08:00)
[2018-10-27] MEDS: METOPROLOL 25 MG TAB PO (09:00)
[2018-10-27] MEDS: BUDESONIDE (NEB) 0.5MG/2ML AMP HHN (09:00)
[2018-10-27] MEDS: MULTIVIT/CA CARB/B CMPLX/FA TAB PO (09:00)
[2018-10-27] MEDS: POLYETHYLENE GLYCOL 17 GM PACKET PO (09:00)
[2018-10-27 11:08] LABS: ADD MAN DIFF? NO
[2018-10-27 11:13] LABS: BASOPHILS % 0.4 % (0.0-2.0); EOSINOPHILS # 0.1 10^3/ul (0.0-0.5); HEMATOCRIT 29.6 % (37.0-47.0); HEMOGLOBIN 9.1 g/dl (12.0-16.0); LYMPHOCYTES # 0.9 10^3/ul (0.8-2.9); LYMPHOCYTES % 17.9 % (15.0-51.0); MEAN CORPUSCULAR HEMOGLOBIN 29.9 pg (29.0-33.0); MEAN CORPUSCULAR HGB CONC 30.7 g/dl (32.0-37.0); MEAN CORPUSCULAR VOLUME 97.4 fl (82.0-101.0); MEAN PLATELET VOLUME 11.7 fl (7.4-10.4); MONOCYTE # 0.7 10^3/ul (0.3-0.9); MONOCYTES % 13.5 % (0.0-11.0); NEUTROPHIL # 3.4 10^3/ul (1.6-7.5); NEUTROPHILS % 66.6 % (39.0-77.0); PLATELET COUNT 140 10^3/UL (140-415); RED BLOOD COUNT 3.04 10^6/ul (4.20-5.40); RED CELL DISTRIBUTION WIDTH 17.1 % (11.5-14.5)
[2018-10-27 11:32] LABS: ANION GAP 12 (5-13); BLOOD UREA NITROGEN 16 mg/dl (7-20); CALCIUM 9.4 mg/dl (8.4-10.2); CARBON DIOXIDE 27 mmol/L (21-31); CHLORIDE 99 mmol/L (97-110); GLUCOSE 310 mg/dl (70-220); MAGNESIUM 2.1 mg/dl (1.7-2.5); PHOSPHORUS 2.7 mg/dl (2.5-4.9); POTASSIUM 4.2 mmol/L (3.5-5.1); SODIUM 138 mmol/L (135-144)
[2018-10-27] MEDS: HALOPERIDOL 5 MG INJ IM (13:37)
== END 2018-10-27 16:25 | disposition home health service (06) | DRG 91 ==
LOC: VRC 18:28
PROVIDERS: Internal Medicine
PROC: 5A1D70Z Performance of Urinary Filtration, Intermittent, Less than 6 Hours Per Day (ICD-10-PCS; principal; 2018-10-26)
DX: G92 Toxic encephalopathy (principal); N18.6 End stage renal disease; N17.9 Acute kidney failure, unspecified; N39.0 Urinary tract infection, site not specified; I13.2 Hypertensive heart and chronic kidney disease with heart failure and with stage 5 chronic kidney disease, or end stage renal disease; I50.30 Unspecified diastolic (congestive) heart failure; E11.22 Type 2 diabetes mellitus with diabetic chronic kidney disease; Z99.2 Dependence on renal dialysis; D64.9 Anemia, unspecified; E83.9 Disorder of mineral metabolism, unspecified; I25.10 Atherosclerotic heart disease of native coronary artery without angina pectoris; E03.9 Hypothyroidism, unspecified; D69.6 Thrombocytopenia, unspecified; I95.9 Hypotension, unspecified; I48.91 Unspecified atrial fibrillation; J45.909 Unspecified asthma, uncomplicated; R53.81 Other malaise; R13.12 Dysphagia, oropharyngeal phase; Z74.09 Other reduced mobility; G31.84 Mild cognitive impairment of uncertain or unknown etiology
CPT/HCPCS: 80048; 80053; 82962; 83036; 83735; 84100; 85025; 87081; 90935; 92523; 92610; 93005; 94640; 94664; 97110; 97116; 97163; 97166; 97530; 97542